=== PATIENT | female | born 1965 | race African-American/Black ===

== ENCOUNTER 2020-04-01 15:14 | Emergency (ER) | payer MEDICAID ==
[~2020-04-01] VITALS: Ht 157.5 cm; Wt 63.0 kg
[2020-04-01 17:35] LABS: BASOPHILS % 0.9 % (0.0-2.0); EOSINOPHILS % 0.7 % (0.0-5.0); HEMATOCRIT. 36.6 % (36.0-48.0); HEMOGLOBIN. 11.8 g/dL (12.0-16.0); LYMPHOCYTES % 17.2 % (20.0-50.0); MEAN CORPUSCULAR HEMOGLOBIN 27.3 pg (28.0-32.0); MEAN CORPUSCULAR VOLUME 84.4 fL (81.0-99.0); MEAN PLATELET VOLUME 7.4 fl (7.4-10.4); MONOCYTES % 5.2 % (2.0-8.0); PLATELET 284 x1000/uL (130-400); RED BLOOD CELL COUNT 4.34 mill/uL (4.2-5.4); RED CELL DISTRIBUTION WIDTH 13.7 % (11.6-14.6)
[2020-04-01 17:36] LABS: CHLORIDE 112 mEq/L (98-107)
[2020-04-01] MEDS ORDERED: ASPIRIN 81MG TABLET PO ONE (18:00)
[2020-04-01] MEDS ORDERED: FUROSEMIDE 20MG/2ML VIAL IVP ONE (19:15)
[2020-04-01 21:12] VITALS: BP 203/115
== END 2020-04-01 21:21 | disposition home or self-care (01) ==
LOC: ER 16:01 → EDBEDREQ 20:59 → EDBEDREQTM 20:59 → ER 21:21 → ENRESERV 21:38 → CANRESERV 21:38 → CANBEDREQ 04-02 03:09
DX: N17.9 Acute kidney failure, unspecified (principal); I11.0 Hypertensive heart disease with heart failure; I50.9 Heart failure, unspecified; E78.00 Pure hypercholesterolemia, unspecified; Z94.0 Kidney transplant status
CPT/HCPCS: 36415; 71045; 80053; 83880; 84484; 85025; 93005; 96374; 99285; J1940; Z7610

== ENCOUNTER 2021-08-24 03:56 | Inpatient (IN) | payer MEDICAID ==
[~2021-08-24] VITALS: Ht 157.5 cm; Wt 49.2 kg
[2021-08-24] MEDS ORDERED: ONDANSETRON HCL 4MG/2ML INJ IV STA (05:24)
[2021-08-24] MEDS ORDERED: MORPHINE SULFATE 4 MG/ML CPJ (NOT FOR IM USE) IV STA (05:24)
[2021-08-24] MEDS ORDERED: SODIUM CHLORIDE 0.9% 1,000 ML IV ONE (05:30)
[2021-08-24] MEDS ORDERED: HYDRALAZINE HCL 100MG TABLET PO ONE (06:00)
[2021-08-24 08:45] LABS: CHLORIDE 121 mEq/L (98-107)
[2021-08-24 08:52] LABS: HEMATOCRIT. 52.2 % (36.0-48.0); MEAN CORPUSCULAR HEMOGLOBIN 27.1 pg (28.0-32.0); MEAN CORPUSCULAR VOLUME 88.6 fL (81.0-99.0); MEAN PLATELET VOLUME 6.3 fl (7.4-10.4); PLATELET 550 x1000/uL (130-400); RED BLOOD CELL COUNT 5.89 mill/uL (4.2-5.4); RED CELL DISTRIBUTION WIDTH 17.6 % (11.6-14.6)
[2021-08-24] MEDS ORDERED: SODIUM POLYSTYRENE SULFONATE 15 G/60 ML BOT PO ONE (09:00)
[2021-08-24] MEDS ORDERED: SODIUM BICARBONATE 8.4% 1 MEQ/ML 50ML SYR IV ONE (09:00)
[2021-08-24] MEDS ORDERED: DEXTROSE 50% WATER 50ML SYRINGE IV ONE (09:00)
[2021-08-24] MEDS ORDERED: CALCIUM GLUCONATE 1,000 MG in DEXT 5% WATER 100 ML IV ONE (09:00)
[2021-08-24] MEDS ORDERED: INSULIN REGULAR (HUMULIN R) 300UNITS/3ML VIAL IV ONE (09:00)
[2021-08-24 09:13] LABS: PLATELET ESTIMATE INCREASED
[2021-08-24] MEDS ORDERED: CALCIUM GLUCONATE 1GM PREMIX 50 ML IV NR (09:15)
[2021-08-24 09:56] LABS: CLARITY URINE CLOUDY (CLEAR); COLOR URINE YELLOW (YELLOW); KETONES URINE TRACE (NEGATIVE); LEUKOCYTE ESTERASE URINE 2+ (NEGATIVE); NITRITE URINE POSITIVE (NEGATIVE); OCCULT BLOOD URINE 2+ (NEGATIVE); PROTEIN URINE 2+ (NEGATIVE); SPECIFIC GRAVITY URINE 1.014 (1.005-1.030); UROBILINOGEN URINE 0.2 E.U./dL (0.2-1.0)
[2021-08-24 11:36] LABS: BG BASE EXCESS -10.9 mmol/L (-2.0-2.0); BG CARBOXYHEMOGLOBIN 0.6 % (0.5-1.5); BG DEOXYHEMOGLOBIN 3.9 % (0.0-5.0); BG FRACTION INSPIRED OXYGEN 21; BG HCO3 ACT 12.6 mmol/L (22.0-26.0); BG METHEMOGLOBIN 0.4 % (0.0-1.5); BG OXYGEN SATURATION 96.1 % (92.0-98.5); BG OXYHEMOGLOBIN 95.1 % (94.0-97.0); BG PCO2 23.5 mmHg (35.0-45.0); BG PH 7.348 (7.350-7.450); BG PO2 83.4 mmHg (75.0-100.0); BG SAMPLE SITE RIGHT BRACHIAL; BG TOTAL HEMOGLOBIN 14.5 g/dL (12.0-18.0); BG VENT MODE ROOM AIR
[2021-08-24] MEDS ORDERED: LORAZEPAM 0.5MG TABLET PO PRN (13:15)
[2021-08-24] MEDS ORDERED: ONDANSETRON HCL 4MG/2ML INJ IV PRN (13:15)
[2021-08-24] MEDS ORDERED: HYDROCODONE/ACETAMINOPHEN 5/325MG TABLET PO PRN (13:15)
[2021-08-24] MEDS ORDERED: ACETAMINOPHEN 325MG TABLET PO PRN ×2 (13:15→15:15)
[2021-08-24] MEDS ORDERED: DOCUSATE SODIUM 100MG CAPSULE PO PRN (13:15)
[2021-08-24] MEDS ORDERED: IPRATROPIUM/ALBUTEROL 0.5-3(2.5)MG/3ML NEB HHN PRN (13:15)
[2021-08-24] MEDS ORDERED: CEFTRIAXONE 1 G PREMIX 50 ML IV SCH (14:15)
[2021-08-24] MEDS ORDERED: NALOXONE HCL 0.4MG/ML VIAL IV PRN ×2 (14:15→16:00)
[2021-08-24] MEDS: CLONIDINE 0.1MG TABLET PO SCH (14:32)
[2021-08-24] MEDS: SODIUM BICARBONATE 100 MEQ in DEXTROSE 5% WATER 1,000 ML IV SCH (14:33)
[2021-08-24] MEDS: PREDNISONE 5MG TABLET PO SCH (14:33)
[2021-08-24] MEDS: NIFEDIPINE XL 90MG TAB PO SCH (14:33)
[2021-08-24] MEDS ORDERED: ASPIRIN 81MG EC TABLET PO NR (17:00)
[2021-08-24] MEDS: CARVEDILOL 12.5MG TABLET PO SCH (18:33)
[2021-08-24] MEDS: TACROLIMUS 1MG CAPSULE PO SCH (20:00)
[2021-08-24] MEDS ORDERED: DOCUSATE SODIUM 100MG CAPSULE PO SCH (21:00)
[2021-08-24] MEDS ORDERED: BISACODYL 10MG SUPP PR PRN (21:00)
[2021-08-24] MEDS: MYCOPHENOLATE MOFETIL 500MG TABLET PO SCH (21:00)
[2021-08-24 21:05] LABS: *AMPHETAMINES SCREEN URINE NEGATIVE (NEGATIVE); *BARBITURATES SCREEN URINE NEGATIVE (NEGATIVE); *BENZODIAZEPINES SCREEN URINE NEGATIVE (NEGATIVE); *COCAINE SCREEN URINE NEGATIVE (NEGATIVE); CANNABINOID URINE SCREEN NEGATIVE (NEGATIVE); METHADONE URINE SCREEN NEGATIVE (NEGATIVE); OPIATES URINE SCREEN PRESUMTIVE POSITIVE (NEGATIVE); PHENCYCLIDINE URINE SCREEN NEGATIVE (NEGATIVE)
[2021-08-25] VITALS (31 sets, daily range): BP systolic 100–246; BP diastolic 61–177
[2021-08-25] MEDS: CLONIDINE 0.1MG TABLET PO SCH ×3 (01:10→14:44)
[2021-08-25] MEDS: ATORVASTATIN CALCIUM 10MG TABLET PO SCH ×2 (01:10→21:00)
[2021-08-25] MEDS ORDERED: *PATIENT'S OWN MEDICATION STORAGE XX SCH (04:00)
[2021-08-25] MEDS ORDERED: TACR1CAP PO (04:07)
[2021-08-25] MEDS ORDERED: PRED5TAB PO (04:07)
[2021-08-25] MEDS ORDERED: MAGN400T26 PO (04:07)
[2021-08-25] MEDS ORDERED: CALC0.253 PO (04:07)
[2021-08-25] MEDS ORDERED: CLOP75TA33 PO (04:07)
[2021-08-25] MEDS ORDERED: CARV25TA47 PO (04:07)
[2021-08-25] MEDS ORDERED: NIFE90TA43 PO (04:07)
[2021-08-25] MEDS ORDERED: CLON0.3T PO (04:07)
[2021-08-25] MEDS ORDERED: PANT40TA51 PO (04:07)
[2021-08-25] MEDS ORDERED: B50 MT (04:07)
[2021-08-25] MEDS ORDERED: MYCO250C PO (04:07)
[2021-08-25] MEDS: SODIUM BICARBONATE 100 MEQ in DEXTROSE 5% WATER 1,000 ML IV SCH (05:07)
[2021-08-25] MEDS ORDERED: NOREPINEPHRINE 8 MG in DEXT 5% WATER 242 ML IV PRN (06:00)
[2021-08-25] MEDS ORDERED: EPINEPHRINE 5 MG in DEXT 5% WATER 245 ML IV PRN (06:00)
[2021-08-25] MEDS: TACROLIMUS 1MG CAPSULE PO SCH ×3 (08:00→20:00)
[2021-08-25] MEDS: CARVEDILOL 12.5MG TABLET PO SCH ×2 (08:59→17:00)
[2021-08-25] MEDS: MYCOPHENOLATE MOFETIL 500MG TABLET PO SCH ×2 (09:00→21:00)
[2021-08-25] MEDS: CALCITRIOL 0.25MCG CAPSULE PO SCH (09:00)
[2021-08-25] MEDS: PREDNISONE 5MG TABLET PO SCH (09:00)
[2021-08-25] MEDS: NIFEDIPINE XL 90MG TAB PO SCH ×2 (09:00→21:00)
[2021-08-25] MEDS: CEFTRIAXONE 1,000 MG in DEXTROSE 5% WATER 50 ML IV SCH (09:17)
[2021-08-25] MEDS ORDERED: BACITRACIN 15GM TUBE TOP ONE (11:20)
[2021-08-25] MEDS ORDERED: POLYMYXIN B SULFATE 500000 UNITS/VIAL ONE (11:21)
[2021-08-25] MEDS ORDERED: SKIN ADHESIVE 0.7 GM EA TOP ONE (11:21)
[2021-08-25] MEDS ORDERED: SODIUM CHLORIDE 0.9% INJ 10ML FLUSH IVF ONE (11:21)
[2021-08-25] MEDS ORDERED: BUPIVACAINE HCL/PF 0.25% (2.5MG/ML) 10ML ONE (11:21)
[2021-08-25] MEDS ORDERED: ROCURONIUM BROMIDE 10MG/ML VIAL 5ML IV ONE (15:58)
[2021-08-25] MEDS ORDERED: FENTANYL CITRATE/PF 50MCG/ML 2ML VIAL ONE (15:58)
[2021-08-25] MEDS ORDERED: ETOMIDATE 2MG/ML 10ML VIAL IV ONE (15:59)
[2021-08-25] MEDS ORDERED: MIDAZOLAM HCL 2 MG/2 ML VIAL ONE (16:02)
[2021-08-25] MEDS ORDERED: PROPOFOL 200MG/20ML VIAL IV ONE (16:05)
[2021-08-25 16:57] LABS: BASOPHILS % 0.8 % (0.0-2.0); EOSINOPHILS % 1.3 % (0.0-5.0); HEMATOCRIT. 30.2 % (36.0-48.0); HEMOGLOBIN. 9.6 g/dL (12.0-16.0); LYMPHOCYTES % 20.5 % (20.0-50.0); MEAN CORPUSCULAR HEMOGLOBIN 26.5 pg (28.0-32.0); MEAN CORPUSCULAR VOLUME 83.3 fL (81.0-99.0); MONOCYTES % 6.7 % (2.0-8.0); NEUTROPHILS % 70.7 % (40.0-76.0); PLATELET 371 x1000/uL (130-400); RED BLOOD CELL COUNT 3.62 mill/uL (4.2-5.4); RED CELL DISTRIBUTION WIDTH 17.3 % (11.6-14.6)
[2021-08-25 17:01] LABS: CHLORIDE 114 mEq/L (98-107)
[2021-08-25] MEDS ORDERED: GLYCOPYRROLATE 0.2 MG/ML 2ML VIAL ONE (17:08)
[2021-08-25] MEDS ORDERED: NEOSTIGMINE METHYLSULFATE 1MG/ML 10 ML VIAL ONE (17:08)
[2021-08-25 17:09] LABS: CREATINE KINASE 36 IU/L (26-192)
[2021-08-25 17:10] LABS: CREATINE KINASE MB FRACTION 1.8 ng/mL (0.5-3.6); PHOSPHORUS 4.8 mg/dL (2.5-4.9)
[2021-08-25 17:12] LABS: TOTAL IRON BINDING CAPACITY 188 ug/dL (250-450)
[2021-08-25 17:35] LABS: VITAMIN B12 SERUM 653 pg/mL (211-911)
[2021-08-25 17:37] LABS: FOLIC ACID (FOLATE) SERUM > 20.00 ng/mL (>5.38)
[2021-08-25] MEDS ORDERED: HYDROMORPHONE HCL/PF 2MG/ML CPJ IV PRN (17:45)
[2021-08-25] MEDS: MORPHINE SULFATE 2 MG/ML CPJ (NOT FOR IM USE) IV PRN ×2 (20:19→22:27)
[2021-08-25] MEDS: NICARDIPINE 100 MG in SODIUM CHLORIDE 0.9% 60 ML IV PRN (20:34)
[2021-08-25] MEDS: CLONIDINE 0.2MG TABLET PO SCH (21:24)
[2021-08-25] MEDS ORDERED: MAGNESIUM 2 G PREMIX 50 ML IV NR (22:00)
[2021-08-26] VITALS (89 sets, daily range): BP systolic 47–205; BP diastolic 47–300
[2021-08-26] MEDS: MORPHINE SULFATE 2 MG/ML CPJ (NOT FOR IM USE) IV PRN ×5 (04:10→20:32)
[2021-08-26] MEDS: CLONIDINE 0.2MG TABLET PO SCH (06:00)
[2021-08-26 06:17] LABS: HEMATOCRIT. 34.6 % (36.0-48.0); HEMOGLOBIN. 10.8 g/dL (12.0-16.0); MEAN CORPUSCULAR HEMOGLOBIN 26.3 pg (28.0-32.0); MEAN PLATELET VOLUME 6.5 fl (7.4-10.4); PLATELET 521 x1000/uL (130-400); RED BLOOD CELL COUNT 4.12 mill/uL (4.2-5.4); RED CELL DISTRIBUTION WIDTH 17.2 % (11.6-14.6)
[2021-08-26 06:22] LABS: CHLORIDE 110 mEq/L (98-107)
[2021-08-26 06:28] LABS: PHOSPHORUS 6.5 mg/dL (2.5-4.9)
[2021-08-26] MEDS: TACROLIMUS 1MG CAPSULE PO SCH ×2 (07:51→20:22)
[2021-08-26 08:47] LABS: PLATELET ESTIMATE INCREASED
[2021-08-26] MEDS: MYCOPHENOLATE MOFETIL 500MG TABLET PO SCH ×2 (08:51→20:22)
[2021-08-26] MEDS: NIFEDIPINE XL 90MG TAB PO SCH ×2 (08:51→20:23)
[2021-08-26] MEDS: CEFTRIAXONE 1,000 MG in DEXTROSE 5% WATER 50 ML IV SCH (08:52)
[2021-08-26] MEDS: PREDNISONE 5MG TABLET PO SCH (08:52)
[2021-08-26] MEDS: CARVEDILOL 12.5MG TABLET PO SCH ×2 (08:52→17:48)
[2021-08-26] MEDS: CALCITRIOL 0.25MCG CAPSULE PO SCH (08:52)
[2021-08-26] MEDS: CITRIC ACID/SODIUM CITRATE SOLN 30ML UDC PO SCH ×2 (09:39→17:47)
[2021-08-26] MEDS: HYDROMORPHONE HCL/PF 2MG/ML CPJ IV PRN ×2 (09:58→15:35)
[2021-08-26] MEDS: NICARDIPINE 100 MG in SODIUM CHLORIDE 0.9% 60 ML IV PRN (12:02)
[2021-08-26] MEDS ORDERED: CLONIDINE 0.2MG TABLET PO SCH (14:00)
[2021-08-26] MEDS: CLONIDINE 0.1MG TABLET PO PRN (15:36)
[2021-08-26] MEDS: ATORVASTATIN CALCIUM 10MG TABLET PO SCH (20:22)
[2021-08-26] MEDS: CLONIDINE 0.1MG TABLET PO SCH (21:51)
[2021-08-27] VITALS (92 sets, daily range): BP systolic 106–152; BP diastolic 55–93
[2021-08-27] MEDS: CLONIDINE 0.1MG TABLET PO SCH ×3 (06:24→21:03)
[2021-08-27 06:53] LABS: HEMATOCRIT. 25.5 % (36.0-48.0); HEMOGLOBIN. 8.1 g/dL (12.0-16.0); MEAN CORPUSCULAR VOLUME 85.1 fL (81.0-99.0); MEAN PLATELET VOLUME 6.7 fl (7.4-10.4); PLATELET 325 x1000/uL (130-400); RED CELL DISTRIBUTION WIDTH 16.6 % (11.6-14.6)
[2021-08-27 07:03] LABS: CHLORIDE 108 mEq/L (98-107)
[2021-08-27 07:17] LABS: PHOSPHORUS 7.1 mg/dL (2.5-4.9)
[2021-08-27 08:42] LABS: PLATELET ESTIMATE NORMAL
[2021-08-27] MEDS: FUROSEMIDE 100MG/10ML VIAL IVP SCH ×2 (09:02→17:45)
[2021-08-27] MEDS: CARVEDILOL 12.5MG TABLET PO SCH ×2 (09:03→17:45)
[2021-08-27] MEDS: CALCITRIOL 0.25MCG CAPSULE PO SCH (09:03)
[2021-08-27] MEDS: CITRIC ACID/SODIUM CITRATE SOLN 30ML UDC PO SCH ×3 (09:03→17:44)
[2021-08-27] MEDS: PREDNISONE 5MG TABLET PO SCH (09:04)
[2021-08-27] MEDS: MYCOPHENOLATE MOFETIL 500MG TABLET PO SCH ×2 (09:04→21:02)
[2021-08-27] MEDS: IRON SUCROSE COMPLEX 100 MG/5 ML ML IV SCH (09:04)
[2021-08-27] MEDS: NIFEDIPINE XL 90MG TAB PO SCH (09:04)
[2021-08-27] MEDS: MORPHINE SULFATE 2 MG/ML CPJ (NOT FOR IM USE) IV PRN (09:05)
[2021-08-27] MEDS: CEFTRIAXONE 1,000 MG in DEXTROSE 5% WATER 50 ML IV SCH (09:13)
[2021-08-27] MEDS: TACROLIMUS 1MG CAPSULE PO SCH ×2 (09:13→19:36)
[2021-08-27] MEDS ORDERED: MAGNESIUM CITRATE 300ML SOLUTION PO SCH (10:00)
[2021-08-27] MEDS: CALCIUM ACETATE 667MG CAPSULE PO SCH ×2 (13:30→17:45)
[2021-08-27] MEDS ORDERED: EPOETIN ALFA 10000UNITS/ML VIAL SUBCUT SCH (21:00)
[2021-08-27] MEDS ORDERED: EPOETIN ALFA-EPBX 10,000 UNIT/ML VIAL SUBCUT SCH (21:00)
[2021-08-27] MEDS: ATORVASTATIN CALCIUM 10MG TABLET PO SCH (21:02)
[2021-08-28] VITALS (68 sets, daily range): BP systolic 91–160; BP diastolic 45–105
[2021-08-28] MEDS: CLONIDINE 0.1MG TABLET PO SCH ×3 (06:00→22:37)
[2021-08-28 06:03] LABS: HEMATOCRIT. 24.2 % (36.0-48.0); HEMOGLOBIN. 7.8 g/dL (12.0-16.0); MEAN CORPUSCULAR HEMOGLOBIN 27.3 pg (28.0-32.0); MEAN CORPUSCULAR VOLUME 84.1 fL (81.0-99.0); MEAN PLATELET VOLUME 6.8 fl (7.4-10.4); PLATELET 324 x1000/uL (130-400); RED BLOOD CELL COUNT 2.88 mill/uL (4.2-5.4); RED CELL DISTRIBUTION WIDTH 16.7 % (11.6-14.6)
[2021-08-28] MEDS: FUROSEMIDE 100MG/10ML VIAL IVP SCH ×2 (06:18→16:30)
[2021-08-28 06:19] LABS: CHLORIDE 106 mEq/L (98-107)
[2021-08-28 06:34] LABS: PHOSPHORUS 6.6 mg/dL (2.5-4.9)
[2021-08-28 08:06] LABS: PLATELET ESTIMATE NORMAL
[2021-08-28] MEDS: CALCIUM ACETATE 667MG CAPSULE PO SCH ×3 (09:11→16:38)
[2021-08-28] MEDS: TACROLIMUS 1MG CAPSULE PO SCH ×2 (09:12→19:43)
[2021-08-28] MEDS: MYCOPHENOLATE MOFETIL 500MG TABLET PO SCH ×2 (09:12→20:33)
[2021-08-28] MEDS: CARVEDILOL 12.5MG TABLET PO SCH ×2 (09:12→16:28)
[2021-08-28] MEDS: CALCITRIOL 0.25MCG CAPSULE PO SCH (09:12)
[2021-08-28] MEDS: CITRIC ACID/SODIUM CITRATE SOLN 30ML UDC PO SCH (09:13)
[2021-08-28] MEDS: CEFTRIAXONE 1,000 MG in DEXTROSE 5% WATER 50 ML IV SCH (09:13)
[2021-08-28] MEDS: IRON SUCROSE COMPLEX 100 MG/5 ML ML IV SCH (09:13)
[2021-08-28] MEDS: NIFEDIPINE XL 90MG TAB PO SCH (09:13)
[2021-08-28] MEDS: PREDNISONE 5MG TABLET PO SCH (09:13)
[2021-08-28] MEDS ORDERED: THROAT LOZENGES-BENZOCAINE/MENTH/CETYLPYRD CL LOZENGES MM PRN (09:30)
[2021-08-28] MEDS ORDERED: METOLAZONE 5MG TABLET PO NR (10:15)
[2021-08-28] MEDS: ATORVASTATIN CALCIUM 10MG TABLET PO SCH (20:33)
[2021-08-29] VITALS (23 sets, daily range): BP systolic 101–167; BP diastolic 57–93
[2021-08-29] MEDS: CLONIDINE 0.1MG TABLET PO SCH (06:00)
[2021-08-29] MEDS: FUROSEMIDE 100MG/10ML VIAL IVP SCH ×2 (06:34→17:15)
[2021-08-29 08:11] LABS: BASOPHILS % 0.3 % (0.0-2.0); EOSINOPHILS % 0.3 % (0.0-5.0); HEMATOCRIT. 25.7 % (36.0-48.0); HEMOGLOBIN. 8.3 g/dL (12.0-16.0); LYMPHOCYTES % 12.2 % (20.0-50.0); MEAN CORPUSCULAR HEMOGLOBIN 27.1 pg (28.0-32.0); MEAN PLATELET VOLUME 6.6 fl (7.4-10.4); MONOCYTES % 9.2 % (2.0-8.0); PLATELET 462 x1000/uL (130-400); RED BLOOD CELL COUNT 3.06 mill/uL (4.2-5.4); RED CELL DISTRIBUTION WIDTH 16.6 % (11.6-14.6)
[2021-08-29 08:25] LABS: PHOSPHORUS 6.4 mg/dL (2.5-4.9)
[2021-08-29] MEDS ORDERED: CITRIC ACID/SODIUM CITRATE SOLN 30ML UDC PO SCH (09:00)
[2021-08-29] MEDS: IRON SUCROSE COMPLEX 100 MG/5 ML ML IV SCH (09:00)
[2021-08-29] MEDS ORDERED: NIFEDIPINE XL 60MG TAB PO SCH (09:00)
[2021-08-29] MEDS: CARVEDILOL 12.5MG TABLET PO SCH ×2 (09:00→17:00)
[2021-08-29] MEDS: MYCOPHENOLATE MOFETIL 500MG TABLET PO SCH ×2 (09:10→21:31)
[2021-08-29] MEDS: CALCIUM ACETATE 667MG CAPSULE PO SCH ×3 (09:10→17:20)
[2021-08-29] MEDS: PREDNISONE 5MG TABLET PO SCH (09:11)
[2021-08-29] MEDS: CALCITRIOL 0.25MCG CAPSULE PO SCH (09:11)
[2021-08-29] MEDS: TACROLIMUS 1MG CAPSULE PO SCH ×2 (09:11→19:52)
[2021-08-29] MEDS ORDERED: DIPHENHYDRAMINE 25MG CAPSULE PO PRN (11:15)
[2021-08-29] MEDS: CLOPIDOGREL 75MG TABLET PO SCH (11:50)
[2021-08-29] MEDS: CEFTRIAXONE 1,000 MG in DEXTROSE 5% WATER 50 ML IV SCH (11:51)
[2021-08-29] MEDS ORDERED: LIDOCAINE HCL 1% 20ML VIAL (Pyxis) INJ ONE ×2 (12:30→14:37)
[2021-08-29] MEDS ORDERED: PHENOL/SODIUM PHENOLATE 1.4% SRPAY 177ML MM NR (14:00)
[2021-08-29] MEDS: HYDROMORPHONE HCL/PF 2MG/ML CPJ IV PRN (14:41)
[2021-08-29] MEDS ORDERED: FENTANYL CITRATE/PF 50MCG/ML 2ML VIAL ONE (15:18)
[2021-08-29] MEDS ORDERED: IOHEXOL-300 50 ML BOTTLE IV ONE (15:21)
[2021-08-29] MEDS ORDERED: FENTANYL CITRATE/PF 50MCG/ML 2ML VIAL IV ONE (15:30)
[2021-08-29] MEDS ORDERED: PHENOL/SODIUM PHENOLATE 1.4% SRPAY 177ML MM PRN (19:45)
[2021-08-29] MEDS: ATORVASTATIN CALCIUM 10MG TABLET PO SCH (21:31)
[2021-08-30] VITALS (17 sets, daily range): BP systolic 140–203; BP diastolic 84–131
[2021-08-30] MEDS: CLONIDINE 0.1MG TABLET PO PRN ×2 (01:38→10:00)
[2021-08-30] MEDS: FUROSEMIDE 100MG/10ML VIAL IVP SCH (06:24)
[2021-08-30 07:29] LABS: BASOPHILS % 0.2 % (0.0-2.0); EOSINOPHILS % 0.2 % (0.0-5.0); HEMATOCRIT. 24.4 % (36.0-48.0); HEMOGLOBIN. 7.8 g/dL (12.0-16.0); LYMPHOCYTES % 10.4 % (20.0-50.0); MEAN CORPUSCULAR HEMOGLOBIN 27.2 pg (28.0-32.0); MEAN CORPUSCULAR VOLUME 84.6 fL (81.0-99.0); MEAN PLATELET VOLUME 6.4 fl (7.4-10.4); MONOCYTES % 10.6 % (2.0-8.0); NEUTROPHILS % 78.6 % (40.0-76.0); PLATELET 389 x1000/uL (130-400); RED BLOOD CELL COUNT 2.88 mill/uL (4.2-5.4); RED CELL DISTRIBUTION WIDTH 16.4 % (11.6-14.6)
[2021-08-30] MEDS: CALCITRIOL 0.25MCG CAPSULE PO SCH (07:58)
[2021-08-30] MEDS: TACROLIMUS 1MG CAPSULE PO SCH ×2 (07:59→20:44)
[2021-08-30] MEDS: PREDNISONE 5MG TABLET PO SCH (07:59)
[2021-08-30] MEDS: CARVEDILOL 12.5MG TABLET PO SCH (08:02)
[2021-08-30] MEDS: MYCOPHENOLATE MOFETIL 500MG TABLET PO SCH (08:02)
[2021-08-30] MEDS: CALCIUM ACETATE 667MG CAPSULE PO SCH ×3 (08:05→17:20)
[2021-08-30] MEDS: NIFEDIPINE XL 30MG TAB PO SCH (14:27)
[2021-08-30 18:16] LABS: HEPATITIS B SURFACE ANTIGEN NEGATIVE
[2021-08-30] MEDS: ATORVASTATIN CALCIUM 10MG TABLET PO SCH (22:55)
[2021-08-31] VITALS (20 sets, daily range): BP systolic 128–167; BP diastolic 70–99
[2021-08-31] MEDS: CARVEDILOL 12.5MG TABLET PO SCH ×3 (00:07→17:31)
[2021-08-31 06:07] LABS: BASOPHILS % 0.3 % (0.0-2.0); EOSINOPHILS % 0.7 % (0.0-5.0); HEMATOCRIT. 24.7 % (36.0-48.0); HEMOGLOBIN. 7.8 g/dL (12.0-16.0); LYMPHOCYTES % 12.1 % (20.0-50.0); MEAN CORPUSCULAR HEMOGLOBIN 27.1 pg (28.0-32.0); MEAN CORPUSCULAR VOLUME 86.5 fL (81.0-99.0); MONOCYTES % 12.2 % (2.0-8.0); NEUTROPHILS % 74.7 % (40.0-76.0); PLATELET 353 x1000/uL (130-400); RED BLOOD CELL COUNT 2.86 mill/uL (4.2-5.4); RED CELL DISTRIBUTION WIDTH 16.3 % (11.6-14.6)
[2021-08-31 06:09] LABS: CHLORIDE 104 mEq/L (98-107)
[2021-08-31 06:13] LABS: PROTHROMBIN TIME 10.3 sec (9.6-11.0)
[2021-08-31 06:20] LABS: PHOSPHORUS 4.2 mg/dL (2.5-4.9)
[2021-08-31] MEDS: CALCIUM ACETATE 667MG CAPSULE PO SCH ×4 (07:20→17:20)
[2021-08-31] MEDS: TACROLIMUS 1MG CAPSULE PO SCH ×2 (08:00→20:30)
[2021-08-31] MEDS: CALCITRIOL 0.25MCG CAPSULE PO SCH ×2 (09:00→15:03)
[2021-08-31] MEDS: PREDNISONE 5MG TABLET PO SCH (15:03)
[2021-08-31] MEDS: NIFEDIPINE XL 30MG TAB PO SCH (15:03)
[2021-08-31] MEDS: ATORVASTATIN CALCIUM 10MG TABLET PO SCH (20:29)
[2021-09-01] VITALS (13 sets, daily range): BP systolic 135–167; BP diastolic 77–97
[2021-09-01 07:09] LABS: PROTHROMBIN TIME 10.3 sec (9.6-11.0)
[2021-09-01 07:11] LABS: BASOPHILS % 0.2 % (0.0-2.0); EOSINOPHILS % 0.3 % (0.0-5.0); HEMATOCRIT. 24.5 % (36.0-48.0); HEMOGLOBIN. 7.9 g/dL (12.0-16.0); LYMPHOCYTES % 12.8 % (20.0-50.0); MEAN CORPUSCULAR HEMOGLOBIN 28.1 pg (28.0-32.0); MEAN CORPUSCULAR VOLUME 86.8 fL (81.0-99.0); MEAN PLATELET VOLUME 6.7 fl (7.4-10.4); MONOCYTES % 13.7 % (2.0-8.0); PLATELET 345 x1000/uL (130-400); RED BLOOD CELL COUNT 2.82 mill/uL (4.2-5.4); RED CELL DISTRIBUTION WIDTH 16.9 % (11.6-14.6)
[2021-09-01] MEDS: CALCIUM ACETATE 667MG CAPSULE PO SCH ×3 (07:20→17:06)
[2021-09-01 07:36] LABS: CHLORIDE 103 mEq/L (98-107)
[2021-09-01] MEDS: TACROLIMUS 1MG CAPSULE PO SCH ×2 (08:00→21:46)
[2021-09-01] MEDS: CARVEDILOL 12.5MG TABLET PO SCH ×2 (09:00→17:06)
[2021-09-01] MEDS: NIFEDIPINE XL 60MG TAB PO SCH (09:00)
[2021-09-01] MEDS: PREDNISONE 5MG TABLET PO SCH (09:00)
[2021-09-01] MEDS: CLONIDINE 0.1MG TABLET PO PRN (12:23)
[2021-09-01] MEDS ORDERED: PROPOFOL 200MG/20ML VIAL IV ONE (14:22)
[2021-09-01] MEDS ORDERED: SIMETHICONE 40 MG/0.6 ML 30ML ONE (14:30)
[2021-09-01] MEDS ORDERED: FENTANYL CITRATE/PF 50MCG/ML 2ML VIAL IV PRN (14:45)
[2021-09-01] MEDS: SUCRALFATE 1 G/10 ML UDC PO SCH ×2 (17:06→21:46)
[2021-09-01] MEDS: ATORVASTATIN CALCIUM 10MG TABLET PO SCH (21:46)
[2021-09-02] VITALS (12 sets, daily range): BP systolic 112–171; BP diastolic 65–101
[2021-09-02] MEDS: CLONIDINE 0.1MG TABLET PO PRN (05:32)
[2021-09-02] MEDS: ACETAMINOPHEN 325MG TABLET PO PRN ×2 (05:40→23:25)
[2021-09-02] MEDS: SUCRALFATE 1 G/10 ML UDC PO SCH ×4 (05:40→20:22)
[2021-09-02 07:23] LABS: BASOPHILS % 0.7 % (0.0-2.0); EOSINOPHILS % 0.8 % (0.0-5.0); HEMATOCRIT. 24.1 % (36.0-48.0); HEMOGLOBIN. 7.5 g/dL (12.0-16.0); LYMPHOCYTES % 10.7 % (20.0-50.0); MEAN CORPUSCULAR HEMOGLOBIN 27.4 pg (28.0-32.0); MEAN CORPUSCULAR VOLUME 87.5 fL (81.0-99.0); MEAN PLATELET VOLUME 6.5 fl (7.4-10.4); MONOCYTES % 12.5 % (2.0-8.0); NEUTROPHILS % 75.3 % (40.0-76.0); PLATELET 327 x1000/uL (130-400); RED BLOOD CELL COUNT 2.76 mill/uL (4.2-5.4); RED CELL DISTRIBUTION WIDTH 16.5 % (11.6-14.6)
[2021-09-02 07:28] LABS: PHOSPHORUS 3.4 mg/dL (2.5-4.9)
[2021-09-02] MEDS: CALCITRIOL 0.25MCG CAPSULE PO SCH (08:07)
[2021-09-02] MEDS: CALCIUM ACETATE 667MG CAPSULE PO SCH (08:07)
[2021-09-02] MEDS: CARVEDILOL 12.5MG TABLET PO SCH ×2 (08:07→17:00)
[2021-09-02] MEDS: NIFEDIPINE XL 60MG TAB PO SCH ×2 (08:07→20:27)
[2021-09-02] MEDS: PREDNISONE 5MG TABLET PO SCH (08:07)
[2021-09-02] MEDS: TACROLIMUS 1MG CAPSULE PO SCH ×2 (08:09→20:22)
[2021-09-02] MEDS: ATORVASTATIN CALCIUM 10MG TABLET PO SCH (20:23)
[2021-09-02 20:27] LABS: BG BASE EXCESS 6.2 mmol/L (-2.0-2.0); BG CARBOXYHEMOGLOBIN 0.3 % (0.5-1.5); BG FRACTION INSPIRED OXYGEN 28; BG HCO3 ACT 29.6 mmol/L (22.0-26.0); BG METHEMOGLOBIN 0.4 % (0.0-1.5); BG OXYGEN SATURATION 90.9 % (92.0-98.5); BG OXYHEMOGLOBIN 90.3 % (94.0-97.0); BG PCO2 37.8 mmHg (35.0-45.0); BG PH 7.512 (7.350-7.450); BG PO2 60.3 mmHg (75.0-100.0); BG SAMPLE SITE LEFT BRACHIAL; BG TOTAL HEMOGLOBIN 9.4 g/dL (12.0-18.0); BG VENT MODE NASAL CANNULA
[2021-09-02] MEDS: EPOETIN ALFA-EPBX 4,000 UNIT/ML VIAL SUBCUT SCH (20:28)
[2021-09-03] VITALS: BP 133/78
[2021-09-03 04:00] VITALS: BP 128/54
[2021-09-03 07:41] LABS: BASOPHILS % 0.7 % (0.0-2.0); EOSINOPHILS % 0.8 % (0.0-5.0); HEMATOCRIT. 25.9 % (36.0-48.0); HEMOGLOBIN. 8.2 g/dL (12.0-16.0); MEAN CORPUSCULAR HEMOGLOBIN 27.7 pg (28.0-32.0); MEAN CORPUSCULAR VOLUME 87.3 fL (81.0-99.0); MEAN PLATELET VOLUME 6.2 fl (7.4-10.4); MONOCYTES % 13.9 % (2.0-8.0); NEUTROPHILS % 64.6 % (40.0-76.0); PLATELET 339 x1000/uL (130-400); RED BLOOD CELL COUNT 2.96 mill/uL (4.2-5.4); RED CELL DISTRIBUTION WIDTH 16.2 % (11.6-14.6)
[2021-09-03 07:51] LABS: PHOSPHORUS 2.4 mg/dL (2.5-4.9)
[2021-09-03 08:00] VITALS: BP 132/67
[2021-09-03] MEDS: SUCRALFATE 1 G/10 ML UDC PO SCH ×4 (08:22→21:28)
[2021-09-03] MEDS: CARVEDILOL 12.5MG TABLET PO SCH ×2 (08:22→17:56)
[2021-09-03] MEDS: NIFEDIPINE XL 60MG TAB PO SCH ×2 (08:23→08:25)
[2021-09-03] MEDS: CALCITRIOL 0.25MCG CAPSULE PO SCH (08:23)
[2021-09-03] MEDS: CLOPIDOGREL 75MG TABLET PO SCH (08:24)
[2021-09-03] MEDS: TACROLIMUS 1MG CAPSULE PO SCH ×2 (08:24→21:28)
[2021-09-03] MEDS ORDERED: POTASSIUM CHLORIDE 20MEQ TABLET SR PO SCH (09:30)
[2021-09-03 12:00] VITALS: BP 125/70
[2021-09-03] MEDS: PREDNISONE 5MG TABLET PO SCH (12:55)
[2021-09-03] MEDS: LORAZEPAM 0.5MG TABLET PO PRN (14:48)
[2021-09-03 16:00] VITALS: BP 149/99
[2021-09-03 20:44] VITALS: BP 176/100
[2021-09-03] MEDS: CLONIDINE 0.1MG TABLET PO PRN (21:28)
[2021-09-03] MEDS: ATORVASTATIN CALCIUM 10MG TABLET PO SCH (21:28)
[2021-09-04 00:02] VITALS: BP 158/107
[2021-09-04 04:00] VITALS: BP 152/100
[2021-09-04] MEDS: SUCRALFATE 1 G/10 ML UDC PO SCH ×4 (07:40→22:36)
[2021-09-04 08:00] VITALS: BP 176/92
[2021-09-04] MEDS: NIFEDIPINE XL 60MG TAB PO SCH (09:17)
[2021-09-04] MEDS: CLOPIDOGREL 75MG TABLET PO SCH (09:17)
[2021-09-04] MEDS: CALCITRIOL 0.25MCG CAPSULE PO SCH (09:17)
[2021-09-04] MEDS: CLONIDINE 0.1MG TABLET PO PRN (09:17)
[2021-09-04] MEDS: ASPIRIN 81MG EC TABLET PO SCH (09:18)
[2021-09-04] MEDS: PREDNISONE 5MG TABLET PO SCH (09:18)
[2021-09-04] MEDS: TACROLIMUS 1MG CAPSULE PO SCH ×2 (09:19→22:37)
[2021-09-04] MEDS: CARVEDILOL 12.5MG TABLET PO SCH ×2 (09:19→17:00)
[2021-09-04 11:17] LABS: BASOPHILS % 0.7 % (0.0-2.0); EOSINOPHILS % 0.3 % (0.0-5.0); HEMATOCRIT. 26.8 % (36.0-48.0); HEMOGLOBIN. 8.5 g/dL (12.0-16.0); LYMPHOCYTES % 26.7 % (20.0-50.0); MEAN CORPUSCULAR HEMOGLOBIN 27.2 pg (28.0-32.0); MEAN CORPUSCULAR VOLUME 85.7 fL (81.0-99.0); MEAN PLATELET VOLUME 6.8 fl (7.4-10.4); MONOCYTES % 12.2 % (2.0-8.0); NEUTROPHILS % 60.1 % (40.0-76.0); PLATELET 353 x1000/uL (130-400); RED BLOOD CELL COUNT 3.13 mill/uL (4.2-5.4); RED CELL DISTRIBUTION WIDTH 16.5 % (11.6-14.6)
[2021-09-04 11:37] LABS: PHOSPHORUS 2.3 mg/dL (2.5-4.9)
[2021-09-04 12:00] VITALS: BP 161/78
[2021-09-04] MEDS: GUAIFENESIN 200MG/10ML SUGAR FREE UDC PO PRN ×2 (13:54→23:12)
[2021-09-04] MEDS: DEXAMETHASONE 10 MG/ML VIAL IV SCH (13:54)
[2021-09-04 16:00] VITALS: BP 124/78
[2021-09-04 20:41] VITALS: BP 119/73
[2021-09-04] MEDS: EPOETIN ALFA-EPBX 4,000 UNIT/ML VIAL SUBCUT SCH (22:37)
[2021-09-04] MEDS: ATORVASTATIN CALCIUM 10MG TABLET PO SCH (22:38)
[2021-09-05 00:46] VITALS: BP 123/73
[2021-09-05 04:00] VITALS: BP 140/87
[2021-09-05 08:00] VITALS: BP 172/90
[2021-09-05] MEDS: NIFEDIPINE XL 60MG TAB PO SCH ×2 (08:55→20:54)
[2021-09-05] MEDS: ASPIRIN 81MG EC TABLET PO SCH (08:55)
[2021-09-05] MEDS: SUCRALFATE 1 G/10 ML UDC PO SCH ×4 (08:55→20:53)
[2021-09-05] MEDS: TACROLIMUS 1MG CAPSULE PO SCH ×2 (08:55→20:54)
[2021-09-05] MEDS: CALCITRIOL 0.25MCG CAPSULE PO SCH (08:56)
[2021-09-05] MEDS: CLOPIDOGREL 75MG TABLET PO SCH (08:56)
[2021-09-05] MEDS: CARVEDILOL 12.5MG TABLET PO SCH ×2 (08:56→20:54)
[2021-09-05] MEDS: DEXAMETHASONE 10 MG/ML VIAL IV SCH (08:56)
[2021-09-05 12:00] VITALS: BP 161/103
[2021-09-05] MEDS: CLONIDINE 0.1MG TABLET PO PRN (12:10)
[2021-09-05] MEDS: GUAIFENESIN 200MG/10ML SUGAR FREE UDC PO PRN ×2 (12:13→18:38)
[2021-09-05] MEDS: FUROSEMIDE 40MG TABLET PO SCH ×2 (13:32→18:38)
[2021-09-05] MEDS ORDERED: CLONIDINE 0.2MG TABLET PO SCH (14:00)
[2021-09-05 16:00] VITALS: BP 151/88
[2021-09-05 20:00] VITALS: BP 134/85
[2021-09-05 20:10] LABS: BASOPHILS % 0.1 % (0.0-2.0); HEMATOCRIT. 26.5 % (36.0-48.0); HEMOGLOBIN. 8.3 g/dL (12.0-16.0); LYMPHOCYTES % 18.9 % (20.0-50.0); MEAN CORPUSCULAR HEMOGLOBIN 27.1 pg (28.0-32.0); MEAN CORPUSCULAR VOLUME 86.8 fL (81.0-99.0); MEAN PLATELET VOLUME 6.8 fl (7.4-10.4); MONOCYTES % 6.9 % (2.0-8.0); NEUTROPHILS % 74.1 % (40.0-76.0); PLATELET 386 x1000/uL (130-400); RED BLOOD CELL COUNT 3.05 mill/uL (4.2-5.4); RED CELL DISTRIBUTION WIDTH 16.2 % (11.6-14.6)
[2021-09-05] MEDS: ATORVASTATIN CALCIUM 10MG TABLET PO SCH (20:53)
[2021-09-05] MEDS ORDERED: CLONIDINE 0.1MG TABLET PO SCH (21:00)
[2021-09-06 00:01] VITALS: BP 126/82
[2021-09-06 04:00] VITALS: BP 92/65
[2021-09-06] MEDS: GUAIFENESIN 200MG/10ML SUGAR FREE UDC PO PRN (04:14)
[2021-09-06] MEDS: LORAZEPAM 0.5MG TABLET PO PRN (04:14)
[2021-09-06] MEDS: SUCRALFATE 1 G/10 ML UDC PO SCH ×4 (05:56→20:25)
[2021-09-06] MEDS: FUROSEMIDE 40MG TABLET PO SCH ×2 (05:57→16:50)
[2021-09-06 08:00] VITALS: BP 108/71
[2021-09-06] MEDS: CALCITRIOL 0.25MCG CAPSULE PO SCH (08:56)
[2021-09-06] MEDS: TACROLIMUS 1MG CAPSULE PO SCH ×2 (08:56→20:21)
[2021-09-06] MEDS: NIFEDIPINE XL 60MG TAB PO SCH ×2 (08:56→20:26)
[2021-09-06] MEDS: ASPIRIN 81MG EC TABLET PO SCH (08:57)
[2021-09-06] MEDS: CARVEDILOL 12.5MG TABLET PO SCH ×2 (08:57→20:39)
[2021-09-06] MEDS: DEXAMETHASONE 10 MG/ML VIAL IV SCH (08:57)
[2021-09-06] MEDS: CLOPIDOGREL 75MG TABLET PO SCH (08:57)
[2021-09-06 12:00] VITALS: BP 135/85
[2021-09-06] MEDS: BENZONATATE 100MG CAPSULE PO PRN (12:33)
[2021-09-06 16:00] VITALS: BP 125/88
[2021-09-06] MEDS: ATORVASTATIN CALCIUM 10MG TABLET PO SCH (20:25)
[2021-09-06] MEDS: ACETAMINOPHEN 325MG TABLET PO PRN (20:25)
[2021-09-06] MEDS: EPOETIN ALFA-EPBX 4,000 UNIT/ML VIAL SUBCUT SCH (20:26)
[2021-09-06 20:46] VITALS: BP 141/90
[2021-09-06] MEDS ORDERED: GUAIFENESIN/CODEINE 200-20MG/10ML UDC PO SCH (21:00)
[2021-09-07] VITALS: BP 153/93
[2021-09-07 04:00] VITALS: BP 110/71
[2021-09-07] MEDS: ACETAMINOPHEN 325MG TABLET PO PRN (05:35)
[2021-09-07] MEDS: FUROSEMIDE 40MG TABLET PO SCH ×2 (06:53→17:34)
[2021-09-07] MEDS: CALCITRIOL 0.25MCG CAPSULE PO SCH (08:35)
[2021-09-07] MEDS: ASPIRIN 81MG EC TABLET PO SCH (08:35)
[2021-09-07] MEDS: SUCRALFATE 1 G/10 ML UDC PO SCH ×4 (08:35→23:36)
[2021-09-07] MEDS: CLOPIDOGREL 75MG TABLET PO SCH (08:36)
[2021-09-07] MEDS: NIFEDIPINE XL 60MG TAB PO SCH (08:36)
[2021-09-07] MEDS: DEXAMETHASONE 10 MG/ML VIAL IV SCH (08:37)
[2021-09-07] MEDS: CARVEDILOL 12.5MG TABLET PO SCH ×3 (08:37→23:30)
[2021-09-07 09:10] LABS: BASOPHILS % 0.5 % (0.0-2.0); EOSINOPHILS % 0.6 % (0.0-5.0); HEMATOCRIT. 28.1 % (36.0-48.0); HEMOGLOBIN. 8.9 g/dL (12.0-16.0); LYMPHOCYTES % 28.6 % (20.0-50.0); MEAN CORPUSCULAR HEMOGLOBIN 27.3 pg (28.0-32.0); MEAN CORPUSCULAR VOLUME 86.4 fL (81.0-99.0); MEAN PLATELET VOLUME 6.6 fl (7.4-10.4); MONOCYTES % 10.5 % (2.0-8.0); NEUTROPHILS % 59.8 % (40.0-76.0); PLATELET 434 x1000/uL (130-400); RED BLOOD CELL COUNT 3.25 mill/uL (4.2-5.4); RED CELL DISTRIBUTION WIDTH 16.4 % (11.6-14.6)
[2021-09-07 09:22] LABS: PHOSPHORUS 2.3 mg/dL (2.5-4.9)
[2021-09-07] MEDS: TACROLIMUS 5MG CAPSULE PO SCH (09:43)
[2021-09-07 12:00] VITALS: BP 115/78
[2021-09-07] MEDS ORDERED: POTASSIUM CHLORIDE 20MEQ/PACKET PO NR (12:30)
[2021-09-07 16:00] VITALS: BP 154/105
[2021-09-07] MEDS ORDERED: POTASSIUM-SODIUM PHOSPHATE POWDER PACKET PO NR (16:00)
[2021-09-07] MEDS ORDERED: MAGNESIUM 2 G PREMIX 50 ML IV NR (17:00)
[2021-09-07 20:00] VITALS: BP 150/73
[2021-09-07] MEDS: TACROLIMUS 1MG CAPSULE PO SCH (20:31)
[2021-09-07] MEDS: ATORVASTATIN CALCIUM 10MG TABLET PO SCH (20:36)
[2021-09-07] MEDS: NIFEDIPINE XL 30MG TAB PO SCH (23:32)
[2021-09-07] MEDS: GUAIFENESIN/CODEINE 200-20MG/10ML UDC PO PRN (23:41)
[2021-09-08] VITALS: BP 149/103
[2021-09-08 04:00] VITALS: BP 142/79
[2021-09-08 06:51] LABS: BASOPHILS % 0.7 % (0.0-2.0); EOSINOPHILS % 0.4 % (0.0-5.0); HEMATOCRIT. 25.6 % (36.0-48.0); HEMOGLOBIN. 8.2 g/dL (12.0-16.0); LYMPHOCYTES % 31.7 % (20.0-50.0); MEAN CORPUSCULAR HEMOGLOBIN 27.5 pg (28.0-32.0); MEAN CORPUSCULAR VOLUME 86.1 fL (81.0-99.0); MEAN PLATELET VOLUME 6.6 fl (7.4-10.4); MONOCYTES % 12.3 % (2.0-8.0); NEUTROPHILS % 54.9 % (40.0-76.0); PLATELET 421 x1000/uL (130-400); RED BLOOD CELL COUNT 2.97 mill/uL (4.2-5.4); RED CELL DISTRIBUTION WIDTH 16.2 % (11.6-14.6)
[2021-09-08] MEDS: FUROSEMIDE 40MG TABLET PO SCH ×2 (06:58→18:09)
[2021-09-08 08:00] VITALS: BP 129/87
[2021-09-08] MEDS: CALCITRIOL 0.25MCG CAPSULE PO SCH (08:52)
[2021-09-08] MEDS: DEXAMETHASONE 10 MG/ML VIAL IV SCH (08:52)
[2021-09-08] MEDS: SUCRALFATE 1 G/10 ML UDC PO SCH ×4 (08:52→21:27)
[2021-09-08] MEDS: ASPIRIN 81MG EC TABLET PO SCH (08:53)
[2021-09-08] MEDS: TACROLIMUS 5MG CAPSULE PO SCH (08:53)
[2021-09-08] MEDS: CLOPIDOGREL 75MG TABLET PO SCH (08:53)
[2021-09-08] MEDS: NIFEDIPINE XL 30MG TAB PO SCH ×2 (08:54→21:26)
[2021-09-08 12:00] VITALS: BP 133/90
[2021-09-08] MEDS: GUAIFENESIN 200MG/10ML SUGAR FREE UDC PO PRN (12:57)
[2021-09-08 16:00] VITALS: BP 120/63
[2021-09-08 20:00] VITALS: BP 167/73
[2021-09-08] MEDS: TACROLIMUS 1MG CAPSULE PO SCH (21:25)
[2021-09-08] MEDS: ATORVASTATIN CALCIUM 10MG TABLET PO SCH (21:26)
[2021-09-08] MEDS: GUAIFENESIN/CODEINE 200-20MG/10ML UDC PO PRN (21:27)
[2021-09-08] MEDS: CARVEDILOL 12.5MG TABLET PO SCH (21:27)
[2021-09-09] VITALS: BP 146/77
[2021-09-09] MEDS: BENZONATATE 100MG CAPSULE PO PRN ×4 (02:06→22:00)
[2021-09-09 04:00] VITALS: BP 122/86
[2021-09-09] MEDS: FUROSEMIDE 40MG TABLET PO SCH ×2 (06:33→17:38)
[2021-09-09 07:26] LABS: BASOPHILS % 1.1 % (0.0-2.0); EOSINOPHILS % 0.5 % (0.0-5.0); HEMATOCRIT. 25.5 % (36.0-48.0); HEMOGLOBIN. 8.2 g/dL (12.0-16.0); LYMPHOCYTES % 27.7 % (20.0-50.0); MEAN CORPUSCULAR HEMOGLOBIN 28.3 pg (28.0-32.0); MEAN CORPUSCULAR VOLUME 88.3 fL (81.0-99.0); MEAN PLATELET VOLUME 6.4 fl (7.4-10.4); MONOCYTES % 12.6 % (2.0-8.0); NEUTROPHILS % 58.1 % (40.0-76.0); PLATELET 395 x1000/uL (130-400); RED BLOOD CELL COUNT 2.89 mill/uL (4.2-5.4); RED CELL DISTRIBUTION WIDTH 16.6 % (11.6-14.6)
[2021-09-09 08:00] VITALS: BP 139/88
[2021-09-09 08:08] LABS: CHLORIDE 105 mEq/L (98-107)
[2021-09-09 08:14] LABS: PHOSPHORUS 2.2 mg/dL (2.5-4.9)
[2021-09-09] MEDS: SUCRALFATE 1 G/10 ML UDC PO SCH ×4 (08:21→21:59)
[2021-09-09] MEDS: GUAIFENESIN 200MG/10ML SUGAR FREE UDC PO PRN ×2 (08:21→17:38)
[2021-09-09] MEDS: DEXAMETHASONE 10 MG/ML VIAL IV SCH (08:22)
[2021-09-09] MEDS: TACROLIMUS 5MG CAPSULE PO SCH (08:22)
[2021-09-09] MEDS: ACETAMINOPHEN 325MG TABLET PO PRN (08:22)
[2021-09-09] MEDS: CALCITRIOL 0.25MCG CAPSULE PO SCH (08:22)
[2021-09-09] MEDS: ASPIRIN 81MG EC TABLET PO SCH (08:23)
[2021-09-09] MEDS: NIFEDIPINE XL 30MG TAB PO SCH ×2 (08:23→22:01)
[2021-09-09] MEDS: CLOPIDOGREL 75MG TABLET PO SCH (08:23)
[2021-09-09] MEDS: CARVEDILOL 12.5MG TABLET PO SCH ×2 (08:24→22:01)
[2021-09-09] MEDS ORDERED: POTASSIUM-SODIUM PHOSPHATE POWDER PACKET PO SCH (09:15)
[2021-09-09 15:00] VITALS: BP_SYST 15; BP_SYST 154; BP_DIAS 45
[2021-09-09 20:00] VITALS: BP 125/84
[2021-09-09] MEDS: GUAIFENESIN/CODEINE 200-20MG/10ML UDC PO PRN (21:59)
[2021-09-09] MEDS: TACROLIMUS 1MG CAPSULE PO SCH (22:00)
[2021-09-09] MEDS: ATORVASTATIN CALCIUM 10MG TABLET PO SCH (22:01)
[2021-09-10] VITALS: BP 124/88
[2021-09-10 04:00] VITALS: BP 128/76
[2021-09-10] MEDS: FUROSEMIDE 40MG TABLET PO SCH (06:47)
[2021-09-10] MEDS: ACETAMINOPHEN 325MG TABLET PO PRN (06:48)
[2021-09-10 07:57] VITALS: BP 110/73
[2021-09-10] MEDS: SUCRALFATE 1 G/10 ML UDC PO SCH ×4 (08:14→20:50)
[2021-09-10] MEDS: PREDNISONE 5MG TABLET PO SCH (08:15)
[2021-09-10] MEDS: CALCITRIOL 0.25MCG CAPSULE PO SCH (08:15)
[2021-09-10] MEDS: ASPIRIN 81MG EC TABLET PO SCH (08:15)
[2021-09-10] MEDS: CLOPIDOGREL 75MG TABLET PO SCH (08:15)
[2021-09-10] MEDS: TACROLIMUS 5MG CAPSULE PO SCH (08:17)
[2021-09-10] MEDS: NIFEDIPINE XL 30MG TAB PO SCH ×2 (08:18→09:00)
[2021-09-10] MEDS: CARVEDILOL 12.5MG TABLET PO SCH (08:18)
[2021-09-10] MEDS ORDERED: CARVEDILOL 12.5MG TABLET PO SCH (09:00)
[2021-09-10 09:32] LABS: BASOPHILS % 0.5 % (0.0-2.0); EOSINOPHILS % 0.5 % (0.0-5.0); HEMATOCRIT. 27.8 % (36.0-48.0); HEMOGLOBIN. 9.1 g/dL (12.0-16.0); MEAN CORPUSCULAR HEMOGLOBIN 29.7 pg (28.0-32.0); MEAN PLATELET VOLUME 6.3 fl (7.4-10.4); MONOCYTES % 11.2 % (2.0-8.0); NEUTROPHILS % 46.8 % (40.0-76.0); PLATELET 528 x1000/uL (130-400); RED BLOOD CELL COUNT 3.06 mill/uL (4.2-5.4); RED CELL DISTRIBUTION WIDTH 16.5 % (11.6-14.6)
[2021-09-10 09:48] LABS: PHOSPHORUS 2.4 mg/dL (2.5-4.9)
[2021-09-10] MEDS ORDERED: POTASSIUM CHLORIDE 20MEQ TABLET SR PO SCH (11:30)
[2021-09-10 12:01] VITALS: BP 125/84
[2021-09-10 15:56] VITALS: BP 120/88
[2021-09-10] MEDS ORDERED: MAGNESIUM 2 G PREMIX 50 ML IV NR (17:00)
[2021-09-10] MEDS ORDERED: POTASSIUM PHOS,M-BASIC-D-BASIC 30 MMOL in DEXT 5% WATER 500 ML IV ONE (17:30)
[2021-09-10 20:00] VITALS: BP 153/94
[2021-09-10] MEDS: CARVEDILOL 3.125 MG TABLET PO SCH (20:47)
[2021-09-10] MEDS: TACROLIMUS 1MG CAPSULE PO SCH (20:47)
[2021-09-10] MEDS: ATORVASTATIN CALCIUM 10MG TABLET PO SCH (20:48)
[2021-09-10] MEDS: GUAIFENESIN 200MG/10ML SUGAR FREE UDC PO PRN (20:52)
[2021-09-11] VITALS: BP 167/94
[2021-09-11] MEDS: CLONIDINE 0.1MG TABLET PO PRN ×2 (00:29→05:27)
[2021-09-11 04:00] VITALS: BP 150/93
[2021-09-11 07:55] LABS: CHLORIDE 105 mEq/L (98-107)
[2021-09-11 07:59] LABS: BASOPHILS % 0.6 % (0.0-2.0); EOSINOPHILS % 1.4 % (0.0-5.0); HEMATOCRIT. 24.3 % (36.0-48.0); LYMPHOCYTES % 45.8 % (20.0-50.0); MEAN CORPUSCULAR VOLUME 90.9 fL (81.0-99.0); MEAN PLATELET VOLUME 6.5 fl (7.4-10.4); NEUTROPHILS % 41.2 % (40.0-76.0); PLATELET 470 x1000/uL (130-400); RED BLOOD CELL COUNT 2.67 mill/uL (4.2-5.4); RED CELL DISTRIBUTION WIDTH 16.2 % (11.6-14.6)
[2021-09-11 08:06] LABS: PHOSPHORUS 5.1 mg/dL (2.5-4.9)
[2021-09-11] MEDS: SUCRALFATE 1 G/10 ML UDC PO SCH ×4 (08:49→20:57)
[2021-09-11] MEDS: CARVEDILOL 3.125 MG TABLET PO SCH ×2 (08:49→20:16)
[2021-09-11] MEDS: TACROLIMUS 5MG CAPSULE PO SCH (08:49)
[2021-09-11] MEDS: PREDNISONE 5MG TABLET PO SCH (08:49)
[2021-09-11] MEDS: CALCITRIOL 0.25MCG CAPSULE PO SCH (08:50)
[2021-09-11] MEDS: CLOPIDOGREL 75MG TABLET PO SCH (08:50)
[2021-09-11] MEDS: NIFEDIPINE XL 30MG TAB PO SCH (08:50)
[2021-09-11] MEDS: ASPIRIN 81MG EC TABLET PO SCH (08:50)
[2021-09-11 12:00] VITALS: BP 135/96
[2021-09-11 16:00] VITALS: BP 125/86
[2021-09-11 20:00] VITALS: BP 144/87
[2021-09-11] MEDS: ATORVASTATIN CALCIUM 10MG TABLET PO SCH (20:16)
[2021-09-11] MEDS: TACROLIMUS 1MG CAPSULE PO SCH (20:57)
[2021-09-11] MEDS: GUAIFENESIN/CODEINE 200-20MG/10ML UDC PO PRN (21:03)
[2021-09-11] MEDS: BENZONATATE 100MG CAPSULE PO PRN (21:03)
[2021-09-12] VITALS: BP 145/96
[2021-09-12 04:00] VITALS: BP 135/95
[2021-09-12] MEDS: SUCRALFATE 1 G/10 ML UDC PO SCH ×3 (07:40→16:32)
[2021-09-12 08:00] VITALS: BP 151/98
[2021-09-12 08:42] LABS: BASOPHILS % 0.3 % (0.0-2.0); EOSINOPHILS % 2.3 % (0.0-5.0); HEMATOCRIT. 26.3 % (36.0-48.0); HEMOGLOBIN. 8.6 g/dL (12.0-16.0); MEAN CORPUSCULAR HEMOGLOBIN 29.6 pg (28.0-32.0); MEAN PLATELET VOLUME 6.5 fl (7.4-10.4); MONOCYTES % 11.2 % (2.0-8.0); NEUTROPHILS % 37.2 % (40.0-76.0); PLATELET 527 x1000/uL (130-400); RED BLOOD CELL COUNT 2.92 mill/uL (4.2-5.4)
[2021-09-12] MEDS: NIFEDIPINE XL 30MG TAB PO SCH (09:00)
[2021-09-12] MEDS: CARVEDILOL 3.125 MG TABLET PO SCH ×2 (09:00→14:47)
[2021-09-12] MEDS: TACROLIMUS 5MG CAPSULE PO SCH (09:03)
[2021-09-12] MEDS: CALCITRIOL 0.25MCG CAPSULE PO SCH (09:03)
[2021-09-12] MEDS: CLOPIDOGREL 75MG TABLET PO SCH (09:04)
[2021-09-12] MEDS: PREDNISONE 5MG TABLET PO SCH (09:04)
[2021-09-12] MEDS: ASPIRIN 81MG EC TABLET PO SCH (09:04)
[2021-09-12] MEDS ORDERED: SUCR1TAB MT (10:50)
[2021-09-12] MEDS ORDERED: ASPI-1406 PO (10:50)
[2021-09-12] MEDS ORDERED: CALC0.253 PO (10:50)
[2021-09-12] MEDS ORDERED: ATOR10TA PO (10:50)
[2021-09-12] MEDS ORDERED: COR3 PO (10:50)
[2021-09-12] MEDS ORDERED: NIFE-33 PO (10:50)
[2021-09-12 12:00] VITALS: BP 151/91
[2021-09-12 12:33] VITALS: BP 151/91
[2021-09-12 16:00] VITALS: BP 170/113
[2021-09-12] MEDS: CLONIDINE 0.1MG TABLET PO PRN (16:32)
[2021-09-12] MEDS ORDERED: NIFEDIPINE XL 30MG TAB PO NR (18:00)
[2021-09-13] MEDS ORDERED: NIFEDIPINE XL 60MG TAB PO SCH (09:00)
== END 2021-09-12 18:25 | disposition home or self-care (01) | DRG 710 ==
LOC: ER 04:38 → 7EST 10:53 → ENRESERV 20:13 → CVICU 08-25 17:35 → 3WST 08-28 16:18 → 7WST 09-02 23:10
PROVIDERS: ADMIT Internal Medicine; ATTEND Internal Medicine
PROC: 0W9D0ZZ Drainage of Pericardial Cavity, Open Approach (ICD-10-PCS; principal; 2021-08-25)
PROC: 0W9930Z Drainage of Right Pleural Cavity with Drainage Device, Percutaneous Approach (ICD-10-PCS; 2021-08-25)
PROC: 02HV33Z Insertion of Infusion Device into Superior Vena Cava, Percutaneous Approach (ICD-10-PCS; 2021-08-25)
PROC: B24BZZ4 Ultrasonography of Heart with Aorta, Transesophageal (ICD-10-PCS; 2021-08-25)
PROC: 02HV33Z Insertion of Infusion Device into Superior Vena Cava, Percutaneous Approach (ICD-10-PCS; 2021-08-29)
PROC: B548ZZA Ultrasonography of Superior Vena Cava, Guidance (ICD-10-PCS; 2021-08-29)
PROC: B5181ZA Fluoroscopy of Superior Vena Cava using Low Osmolar Contrast, Guidance (ICD-10-PCS; 2021-08-29)
PROC: 0JH63XZ Insertion of Tunneled Vascular Access Device into Chest Subcutaneous Tissue and Fascia, Percutaneous Approach (ICD-10-PCS; 2021-08-29)
PROC: 02HV33Z Insertion of Infusion Device into Superior Vena Cava, Percutaneous Approach (ICD-10-PCS; 2021-08-29)
PROC: B5181ZA Fluoroscopy of Superior Vena Cava using Low Osmolar Contrast, Guidance (ICD-10-PCS; 2021-08-29)
PROC: B548ZZA Ultrasonography of Superior Vena Cava, Guidance (ICD-10-PCS; 2021-08-29)
PROC: 0DB98ZX Excision of Duodenum, Via Natural or Artificial Opening Endoscopic, Diagnostic (ICD-10-PCS; 2021-09-01)
PROC: 0DB68ZX Excision of Stomach, Via Natural or Artificial Opening Endoscopic, Diagnostic (ICD-10-PCS; 2021-09-01)
PROC: 5A1D70Z Performance of Urinary Filtration, Intermittent, Less than 6 Hours Per Day (ICD-10-PCS; 2021-09-07)
PROC: 5A1D70Z Performance of Urinary Filtration, Intermittent, Less than 6 Hours Per Day (ICD-10-PCS; 2021-09-09)
PROC: 5A1D70Z Performance of Urinary Filtration, Intermittent, Less than 6 Hours Per Day (ICD-10-PCS; 2021-09-12)
DX: A41.89 Other specified sepsis (principal); J12.82 Pneumonia due to coronavirus disease 2019; J96.01 Acute respiratory failure with hypoxia; E43 Unspecified severe protein-calorie malnutrition; T86.19 Other complication of kidney transplant; T86.11 Kidney transplant rejection; U07.1 COVID-19; R18.8 Other ascites; L89.152 Pressure ulcer of sacral region, stage 2; A41.51 Sepsis due to Escherichia coli [E. coli]; E87.0 Hyperosmolality and hypernatremia; I31.3 Pericardial effusion (noninflammatory); N17.9 Acute kidney failure, unspecified; E86.0 Dehydration; E11.22 Type 2 diabetes mellitus with diabetic chronic kidney disease; D75.839 Thrombocytosis, unspecified; E78.00 Pure hypercholesterolemia, unspecified; E78.5 Hyperlipidemia, unspecified; D50.9 Iron deficiency anemia, unspecified; K22.10 Ulcer of esophagus without bleeding; K21.9 Gastro-esophageal reflux disease without esophagitis; I13.0 Hypertensive heart and chronic kidney disease with heart failure and stage 1 through stage 4 chronic kidney disease, or unspecified chronic kidney disease; N18.4 Chronic kidney disease, stage 4 (severe); B96.20 Unspecified Escherichia coli [E. coli] as the cause of diseases classified elsewhere; E88.09 Other disorders of plasma-protein metabolism, not elsewhere classified; K29.70 Gastritis, unspecified, without bleeding; J02.9 Acute pharyngitis, unspecified; Y83.0 Surgical operation with transplant of whole organ as the cause of abnormal reaction of the patient, or of later complication, without mention of misadventure at the time of the procedure; D63.8 Anemia in other chronic diseases classified elsewhere; E87.6 Hypokalemia; N39.0 Urinary tract infection, site not specified; I16.1 Hypertensive emergency; I25.10 Atherosclerotic heart disease of native coronary artery without angina pectoris; I25.2 Old myocardial infarction; Z79.02 Long term (current) use of antithrombotics/antiplatelets; Z87.440 Personal history of urinary (tract) infections; Z95.5 Presence of coronary angioplasty implant and graft; Z68.1 Body mass index [BMI] 19.9 or less, adult; Z79.899 Other long term (current) drug therapy; Y92.89 Other specified places as the place of occurrence of the external cause; Z79.82 Long term (current) use of aspirin; E87.5 Hyperkalemia; J90 Pleural effusion, not elsewhere classified
CPT/HCPCS: 36415; 36558; 36573; 36600; 71045; 74176; 76700; 76705; 76937; 77001; 80048; 80053; 80197; 80305; 81003; 82040; 82270; 82375; 82378; 82550; 82553; 82565; 82607; 82728; 82746; 82805; 83540; 83550; 83615; 83735; 83880; 84100; 84134; 84145; 84443; 84484; 85025; 85044; 86038; 86140; 86301; 86705; 86706; 86709; 86803; 86850; 86900; 87015; 87045; 87070; 87075; 87077; 87102; 87116; 87186; 87340; 87426; 87427; 87449; 88108; 88305; 88312; 88313; 93005; 93306; 97110; 97116; 97163; 97535; 99152; 99153; 99291; C1725; C1750; C1769; C1887; J0610; J0696; J0885; J1100; J1170; J1642; J1815; J1940; J2250; J2270; J2405; J2704; J2710; J3010; J3475; J3490; J7030; J7040; J7050; J7060; J7070; J7507; J7512; J7517; Q0163; Q9967; U0003; U0005; G0500

== ENCOUNTER 2022-06-15 02:02 | Inpatient (IN) | payer MEDICAID ==
[~2022-06-15] VITALS: Ht 157.5 cm; Wt 49.1 kg
[~2022-06-15 02:02] MED LIST: ASPI-1406 PO; ATOR10TA PO; B50 MT; CALC0.253 PO; CLOP75TA33 PO; COR3 PO; MYCO250C PO; NIFE-33 PO; PANT40TA51 PO; PRED5TAB PO; SUCR1TAB MT; TACR1CAP PO
[2022-06-15] MEDS ORDERED: ASPIRIN 81MG TABLET PO ONE (03:00)
[2022-06-15] MEDS ORDERED: NITROGLYCERIN 0.4MG TABLET SL SL PRN (03:00)
[2022-06-15] MEDS ORDERED: SODIUM CHLORIDE 0.9% 1,000 ML IV ONE (03:00)
[2022-06-15 03:52] LABS: HEMOGLOBIN. 10.1 g/dL (12.0-16.0); MEAN CORPUSCULAR VOLUME 89.5 fL (81.0-99.0); MEAN PLATELET VOLUME 6.9 fl (7.4-10.4); PLATELET 311 x1000/uL (130-400); RED BLOOD CELL COUNT 3.47 mill/uL (4.2-5.4); RED CELL DISTRIBUTION WIDTH 15.2 % (11.6-14.6)
[2022-06-15 04:04] LABS: CHLORIDE 100 mEq/L (98-107)
[2022-06-15] MEDS ORDERED: FUROSEMIDE 40MG/4ML VIAL IVP NR (04:30)
[2022-06-15] MEDS ORDERED: LEVOFLOXACIN 750MG PREMIX 150 ML IV NR (04:30)
[2022-06-15 05:17] LABS: PLATELET ESTIMATE NORMAL
[2022-06-15] MEDS ORDERED: ONDANSETRON HCL 4MG/2ML INJ IV PRN (08:45)
[2022-06-15] MEDS: ACETAMINOPHEN 325MG TABLET PO PRN ×2 (10:27→20:14)
[2022-06-15 11:08] VITALS: BP 138/76
[2022-06-15 12:00] VITALS: BP 138/76
[2022-06-15 16:00] VITALS: BP 123/72
[2022-06-15 20:00] VITALS: BP 124/78
[2022-06-15 20:20] LABS: HEPATITIS B SURFACE ANTIGEN NEGATIVE
[2022-06-16] VITALS: BP 125/75
[2022-06-16 04:00] VITALS: BP 130/70
[2022-06-16 11:28] LABS: HEMATOCRIT. 31.9 % (36.0-48.0); HEMOGLOBIN. 10.6 g/dL (12.0-16.0); MEAN CORPUSCULAR HEMOGLOBIN 29.4 pg (28.0-32.0); MEAN CORPUSCULAR VOLUME 88.7 fL (81.0-99.0); MEAN PLATELET VOLUME 7.2 fl (7.4-10.4); PLATELET 337 x1000/uL (130-400); RED CELL DISTRIBUTION WIDTH 14.9 % (11.6-14.6)
[2022-06-16 12:00] VITALS: BP 148/96
[2022-06-16 12:35] LABS: PLATELET ESTIMATE NORMAL
[2022-06-16] MEDS: TACROLIMUS 1MG CAPSULE PO SCH (13:01)
[2022-06-16] MEDS: PREDNISONE 5MG TABLET PO SCH (13:01)
[2022-06-16] MEDS: ACETAMINOPHEN 325MG TABLET PO PRN (13:02)
[2022-06-16 16:00] VITALS: BP 134/63
[2022-06-16 20:00] VITALS: BP 135/85
[2022-06-17 04:00] VITALS: BP 132/75
[2022-06-17 06:35] LABS: BASOPHILS % 0.2 % (0.0-2.0); EOSINOPHILS % 0.5 % (0.0-5.0); HEMATOCRIT. 30.4 % (36.0-48.0); LYMPHOCYTES % 9.1 % (20.0-50.0); MEAN CORPUSCULAR VOLUME 87.8 fL (81.0-99.0); MEAN PLATELET VOLUME 7.1 fl (7.4-10.4); MONOCYTES % 13.2 % (2.0-8.0); PLATELET 390 x1000/uL (130-400); RED BLOOD CELL COUNT 3.47 mill/uL (4.2-5.4); RED CELL DISTRIBUTION WIDTH 15.1 % (11.6-14.6)
[2022-06-17 06:41] LABS: PROTHROMBIN TIME 10.6 sec (9.6-11.0)
[2022-06-17 08:00] VITALS: BP 132/75
[2022-06-17] MEDS ORDERED: SODIUM BICARBONATE 4% (2.4MEQ) 5ML VIAL IV ONE (08:30)
[2022-06-17] MEDS ORDERED: LEVOFLOXACIN 250MG PREMIX 50 ML IV SCH (10:00)
[2022-06-17] MEDS: TACROLIMUS 1MG CAPSULE PO SCH (10:02)
[2022-06-17] MEDS: PREDNISONE 5MG TABLET PO SCH (10:02)
[2022-06-17] MEDS: ACETAMINOPHEN 325MG TABLET PO PRN (10:50)
[2022-06-17 12:00] VITALS: BP 156/75
[2022-06-17] MEDS ORDERED: IOHEXOL-300 100 ML BOTTLE ONE (13:54)
[2022-06-17 16:00] VITALS: BP 145/89
[2022-06-17] MEDS: CLONIDINE 0.1MG TABLET PO PRN (16:35)
[2022-06-17 20:00] VITALS: BP 135/78
[2022-06-18] VITALS: BP 130/75
[2022-06-18 04:00] VITALS: BP 136/70
[2022-06-18 08:00] VITALS: BP 149/83
[2022-06-18] MEDS: TACROLIMUS 1MG CAPSULE PO SCH (08:32)
[2022-06-18] MEDS: PREDNISONE 5MG TABLET PO SCH (08:32)
[2022-06-18 12:00] VITALS: BP 179/87
[2022-06-18 16:00] VITALS: BP 168/100
[2022-06-18] MEDS: CLONIDINE 0.1MG TABLET PO PRN (16:24)
[2022-06-18] MEDS: CEFEPIME 1,000 MG in DEXTROSE 5% WATER 50 ML IV SCH (17:07)
[2022-06-18] MEDS ORDERED: GUAIFENESIN-DM 200MG-20MG/10ML UDC PO PRN (17:15)
[2022-06-18 20:00] VITALS: BP 154/83
[2022-06-19] VITALS: BP 150/85
[2022-06-19 04:00] VITALS: BP 163/71
[2022-06-19 08:00] VITALS: BP 153/75
[2022-06-19] MEDS: TACROLIMUS 1MG CAPSULE PO SCH (08:34)
[2022-06-19] MEDS: PREDNISONE 5MG TABLET PO SCH (08:34)
[2022-06-19] MEDS ORDERED: LEVOFLOXACIN 250MG TABLET PO SCH (09:00)
[2022-06-19] MEDS ORDERED: NIFEDIPINE XL 30MG TAB PO SCH (10:00)
[2022-06-19 12:00] VITALS: BP 156/90
[2022-06-19 16:00] VITALS: BP 158/90
[2022-06-19] MEDS: CEFEPIME 1,000 MG in DEXTROSE 5% WATER 50 ML IV SCH (18:18)
[2022-06-19 19:20] VITALS: BP 158/90
[2022-06-19] MEDS ORDERED: CARVEDILOL 3.125 MG TABLET PO SCH (21:00)
[2022-06-19 21:06] LABS: HEPATITIS B SURFACE ANTIGEN NEGATIVE
== END 2022-06-19 23:50 | disposition home or self-care (01) | DRG 721 ==
LOC: ER 02:02 → EDBEDREQTM 05:17 → EDBEDREQ 05:17 → MICUSO 06:17 → 7WST 12:40
PROVIDERS: ADMIT Internal Medicine; ATTEND Internal Medicine
PROC: 5A1D70Z Performance of Urinary Filtration, Intermittent, Less than 6 Hours Per Day (ICD-10-PCS; 2022-06-16)
PROC: 0W993ZZ Drainage of Right Pleural Cavity, Percutaneous Approach (ICD-10-PCS; principal; 2022-06-17)
PROC: 5A1D70Z Performance of Urinary Filtration, Intermittent, Less than 6 Hours Per Day (ICD-10-PCS; 2022-06-18)
DX: T80.211A Bloodstream infection due to central venous catheter, initial encounter (principal); A41.9 Sepsis, unspecified organism; T86.12 Kidney transplant failure; J18.9 Pneumonia, unspecified organism; I12.0 Hypertensive chronic kidney disease with stage 5 chronic kidney disease or end stage renal disease; E44.0 Moderate protein-calorie malnutrition; J91.8 Pleural effusion in other conditions classified elsewhere; N18.6 End stage renal disease; E87.5 Hyperkalemia; R09.1 Pleurisy; D64.9 Anemia, unspecified; E78.00 Pure hypercholesterolemia, unspecified; I25.10 Atherosclerotic heart disease of native coronary artery without angina pectoris; Y84.8 Other medical procedures as the cause of abnormal reaction of the patient, or of later complication, without mention of misadventure at the time of the procedure; Z20.822 Contact with and (suspected) exposure to COVID-19; Y83.0 Surgical operation with transplant of whole organ as the cause of abnormal reaction of the patient, or of later complication, without mention of misadventure at the time of the procedure; Z99.2 Dependence on renal dialysis; Z79.899 Other long term (current) drug therapy; Z68.1 Body mass index [BMI] 19.9 or less, adult; Z79.82 Long term (current) use of aspirin; Z79.02 Long term (current) use of antithrombotics/antiplatelets; Y92.89 Other specified places as the place of occurrence of the external cause; Z79.52 Long term (current) use of systemic steroids
CPT/HCPCS: 32555; 36415; 71045; 71260; 76604; 80048; 80053; 80197; 82040; 83605; 83615; 83880; 84145; 84484; 85025; 86705; 86709; 86803; 87340; 87426; 88108; 88312; 93005; 93306; 99285; J0692; J1940; J1956; J3490; J7060; J7507; J7512; Q9967

== ENCOUNTER 2023-05-08 06:01 | Inpatient (IN) | payer MEDICARE, MEDICAID ==
[~2023-05-08] VITALS: Ht 157.5 cm; Wt 49.9 kg
[2023-05-08] VITALS (12 sets, daily range): BP systolic 88–128; BP diastolic 52–79; PULSE 67–115; RESP 16–20; TEMP 97.6–98
[~2023-05-08 06:01] MED LIST changes: +ATOR-2 PO; -ATOR10TA PO; -CALC0.253 PO; +CALC0.5C7 PO; +CARV25TA47 PO; +CLON0.3T PO; -COR3 PO; +FLUT16SP15; +GABA-529 PO; +HYDR-4001 MT; +LEVO750T68 MT; +METR-167 MT; -MYCO250C PO; -NIFE-33 PO; +NIFE90TA43 PO; -PRED5TAB PO; +RIVA20TA PO; +SEVE800T8 PO; -SUCR1TAB MT; -TACR1CAP PO; +TACR1CAP22 PO
[2023-05-08] MEDS ORDERED: LIDOCAINE HCL/PF 1% 10 MG/ML 5ML VIAL INFIL ONE (06:15)
[2023-05-08 06:25] LABS: BASOPHILS % 1.1 % (0.0-2.0); EOSINOPHILS % 4.1 % (0.0-5.0); HEMOGLOBIN. 9.3 g/dL (12.0-16.0); LYMPHOCYTES % 33.7 % (20.0-50.0); MEAN CORPUSCULAR HGB CONC 32.2 g/dL (31.0-37.0); MEAN CORPUSCULAR VOLUME 90.2 fL (81.0-99.0); MEAN PLATELET VOLUME 6.5 fl (7.4-10.4); MONOCYTES % 14.3 % (2.0-8.0); NEUTROPHILS % 46.8 % (40.0-76.0); PLATELET 299 x1000/uL (130-400); RED BLOOD CELL COUNT 3.21 mill/uL (4.2-5.4); WHITE BLOOD COUNT 5.1 x1000/uL (4.5-11.0)
[2023-05-08 06:44] LABS: CHLORIDE 100 mEq/L (98-107); INDEX HEMOLYSI 1 (1-3); INDEX ICTERIC 1 (1-4); INDEX LIPEMIC 1 (1-3); POTASSIUM 3.8 mEq/L (3.5-5.1); SODIUM 132 mEq/L (136-145)
[2023-05-08 06:50] LABS: ALANINE AMINOTRANSFERASE 11 IU/L (13-61); ASPARTATE AMINOTRANSFERASE 12 IU/L (15-37); BILIRUBIN TOTAL 0.2 mg/dL (0.1-1.0); CARBON DIOXIDE 31 mEq/L (21-32); GLUCOSE 98 mg/dL (70-105); PROTEIN TOTAL 8.1 g/dL (6.0-8.3); UREA NITROGEN BLOOD 36 mg/dL (7-21)
[2023-05-08 07:02] LABS: CREATININE 6.4 mg/dL (0.6-1.3)
[2023-05-08 07:46] LABS: INR 1.3; PROTHROMBIN TIME 13.5 sec (9.6-11.0)
[2023-05-08] MEDS ORDERED: DESMOPRESSIN ACETATE 4MCG/ML AMP IV ONE (09:45)
[2023-05-08] MEDS ORDERED: DESMOPRESSIN ACETATE 15 MCG in SODIUM CHLORIDE 0.9% 50 ML IV SCH (10:00)
[2023-05-08] MEDS ORDERED: LIDOCAINE HCL/PF 1% 10 MG/ML 5ML VIAL INFIL NR (10:30)
[2023-05-08] MEDS ORDERED: LIDOCAINE HCL/EPINEPHRINE 1%-EPI 1:100,000 20 ML VIAL INFIL ONE (11:15)
[2023-05-08] MEDS ORDERED: CLON0.3T PO (14:30)
[2023-05-08] MEDS ORDERED: SUCR1TAB PO (14:34)
[2023-05-08] MEDS ORDERED: NIFE-32 PO (14:34)
[2023-05-08 14:35] LABS: HEPATITIS B SURFACE ANTIGEN NEGATIVE
[2023-05-08 15:03] LABS: HEPATITIS C VIR.AB 0.24 INDEXVAL (0.00-0.80)
[2023-05-08 15:05] LABS: HEPATITIS A AB IGM NEGATIVE (NEGATIVE)
[2023-05-08] MEDS ORDERED: ONDANSETRON HCL 4MG/2ML INJ IV PRN (18:30)
[2023-05-08] MEDS ORDERED: ACETAMINOPHEN 325MG TABLET PO PRN (18:30)
[2023-05-09] VITALS: BP 91/55; PULSE 91; RESP 19; TEMP 97.6
[2023-05-09 04:00] VITALS: BP 104/62; PULSE 78; RESP 16; TEMP 97.2
[2023-05-09 08:00] VITALS: BP 99/55; PULSE 79; RESP 18; TEMP 98.1
[2023-05-09 12:00] VITALS: BP 121/65; PULSE 83; RESP 18; TEMP 97.9
[2023-05-09 12:52] VITALS: BP 121/65; PULSE 83; TEMP 97.9; O2SAT 95
[2023-05-10 14:09] LABS: HEPATITIS B CORE AB IGM NEGATIVE
== END 2023-05-09 13:55 | disposition home or self-care (01) | DRG 314 ==
LOC: ER 06:01 → EDBEDREQ 10:38 → ENRESERV 11:30 → ER 13:03 → 7WST 14:13
PROVIDERS: ADMIT Internal Medicine; ATTEND Internal Medicine
PROC: 5A1D70Z Performance of Urinary Filtration, Intermittent, Less than 6 Hours Per Day (ICD-10-PCS; principal; 2023-05-08)
DX: T82.838A Hemorrhage due to vascular prosthetic devices, implants and grafts, initial encounter (principal); N18.6 End stage renal disease; E44.0 Moderate protein-calorie malnutrition; E87.1 Hypo-osmolality and hyponatremia; I12.0 Hypertensive chronic kidney disease with stage 5 chronic kidney disease or end stage renal disease; Z94.0 Kidney transplant status; I25.10 Atherosclerotic heart disease of native coronary artery without angina pectoris; Z68.20 Body mass index [BMI] 20.0-20.9, adult; E78.00 Pure hypercholesterolemia, unspecified; X58.XXXA Exposure to other specified factors, initial encounter; K82.9 Disease of gallbladder, unspecified; Z99.2 Dependence on renal dialysis; Z79.01 Long term (current) use of anticoagulants
CPT/HCPCS: 36415; 71045; 73030; 80053; 85025; 86705; 86709; 86803; 87340; 90935; 99285; J2597; J3490